=== PATIENT | female | born 1995 | race Caucasian/White ===

== ENCOUNTER 2024-08-25 07:23 | Outpatient (REF) | payer OTHER, BC, SELFPAY ==
--- NOTE | ~2024-08-25 | MR_ITS ---
EXAMINATION: MR BRAIN WITHOUT CONTRAST CLINICAL INFORMATION: Post concussion syndrome headache. COMPARISON: None available. TECHNIQUE: MRI of the brain was obtained using routine sequences without contrast. FINDINGS: No acute or old intracranial hemorrhage. No restricted diffusion. No mass effect midline shift, hydrocephalus or herniation. Ocampo-white matter differentiation is normal. Posterior cranial fossa contents demonstrated no signal abnormality or mass effect. No cerebral volume loss. Flow-void signal within the main cerebral vessels is normal. There is slightly increased T2 signal within the left internal jugular bulb suggesting slow flow. Sellar/suprasellar region demonstrated no signal abnormality or masses. Craniocervical and demonstrates normal position of the cerebellar tonsils. Midline structures are normal. Small retention cyst, right maxillary sinus. MR/MR head/brain wo con IMPRESSION: No acute or structural brain abnormality. No old blood products. Electronically signed by: Reddy Buckley MD 08/25/2024 08:18 AM EDT
--- OUTSIDE RECORDS SUMMARY | 2024-08-25 07:26 | XMS_ITS | Clinical Summary ---
Author Organization [facility] Address [address] [place] [phone] Phone Care Team Providers Care Dope Pourer Name Role Phone Unavailable Primary Care Provider Unavailabl e Allergies Active Allergy Reactions Criticality Noted Date Comments Morphine Shortness of breath High 09/10/2016 Occurred sometime ~ surgery 01/2016 Medications cloNIDine 0.1 MG tablet Take 0.2 mg by mouth nightly. 3 8 Active sertraline 50 MG tablet Take 50 mg by mouth once daily. 4 8 Active ibuprofen 200 MG tablet Take 1 tablet by mouth every 6 hours. Active SUMAtriptan 25 MG tablet 1 tablet as needed one time Orally as needed Active FLUZONE QUADRIVALENT 0.5 ML suspension prefilled syringe TO BE ADMINISTERED BY PHARMACIST FOR IMMUNIZATION 0 8 Active albuterol HFA 108 (90 Base) MCG/ACT inhalerIndicatio ns:Mild persistent asthma without complication Inhale 2 puffs every 4 (four) hours as needed for wheezing. 1 Units 3 9 Active QVAR REDIHALER 80 MCG/ACT aerosolIndicatio ns:Mild persistent asthma without complication INHALE 2 PUFFS 2 (TWO) TIMES A DAY. RINSE MOUTH WITH WATER AFTER USE. DO NOT SWALLOW. 10.6 g 9 Active Active Problems Problem Noted Date Diagnosed Date Right medial knee pain 08/18/2018 Overview (08/18/2018): Seen at [facility] Xray showed narrowing of the medial joint space Mild persistent asthma without complication 03/09 Overview (10/12/2017): History of mild persistent asthma. Now notes exacerbations rarely, although may need Albuterol several times a week due to exercise ( despite use of QVAR daily). Usually associated with exercise. Treated successfully with Albuterol prn. Discussed use of alternate medications if frequency or severity of episodes change ( Symbicort?). ls also concerned about allergic reaction to vodka with shortness of breath and GI distress. Not with other kinds of alcohol. Will refer to allergy to address these questions. Assessment & Plan (10/12/2017 2:35 PM EDT): History of mild persistent asthma. Now notes exacerbations rarely, although may need Albuterol several times a week due to exercise ( despite use of QVAR daily). Usually associated with exercise. Treated successfully with Albuterol prn. Discussed use of alternate medications if frequency or severity of episodes change ( Symbicort?). ls also concerned about allergic reaction to vodka with shortness of breath and GI distress. Not with other kinds of alcohol. Will refer to allergy to address these questions. Delayed sleep phase syndrome 09/25/2015 Overview (10/12/2017): Long history of sleep difficulties. Seen by Dr Christianson ( 09/21) with discussion of sleep issues and recommendations. Assessment & Plan (10/12/2017 3:04 PM EDT): Long history of sleep difficulties. Seen by Dr Christianson ( 09/21) with discussion of sleep issues and recommendations. Follow clinically. Continue present management. Dysthymic disorder 09/29/2014 Assessment & Plan (10/12/2017 2:29 PM EDT): The current medical regimen is effective; continue present plan and medications. Seeing a therapist and psychiatrist through [facility]. Assessment & Plan (10/11/2016 8:12 AM EDT): Continue present management-- seeing therapist and psychiatrist at [facility]. Doing well by report. Hearing loss 07/13/2013 Overview (06/23/2018): Initially diagnosed with unspecified hearing loss in 2014; referred to audiology. No specific treatment needed. Recently seen by ENT for abnormal auditory perceptions Assessment & Plan (01/07/2018 5:19 PM EDT): Initially diagnosed with unspecified hearing loss in 2014; referred to audiology. No specific treatment recommended Returns with subjective worsening in hearing loss ( confirmed by audiogram). Will refer to Patrol Officer ( Dr Hankins) Assessment & Plan (10/12/2017 3:56 PM EDT): nitially diagnosed with unspecified hearing loss in 2014; referred to audiology. No specific treatment needed. Repeat testing today continues to show bilateral low frequency hearing loss. Migraine with aura 10/22/2009 Assessment & Plan (10/12/2017 2:31 PM EDT): Migraine headaches are now relatively rare; one episode this summer, none for the previous 6 months. Discussed triggers and potential for avoidance. Maintain adequate sleep hygiene. Abortive treatment recommended; may use Imitrex preferentially. Discussed sleeping/ resting in a dark room at the time of headache. Anticipate improvement in 12-24 h. If headaches are becoming more frequent or disruptive or awakening patient from sleep, may need to consider daily preventive medications or referral to Neurology. If headache is intolerable, or steadily worsening, then ED referral may be needed. Assessment & Plan (10/11/2016 8:14 AM EDT): Migraine headaches are now rare-- one in the last year, although the most recent episode lasted overnight. Usually responds to Imitrex. ( Recent ROJAS started at work; unable to treat at onset) Resolved Problems Problem Noted Date Diagnosed Date Resolved Date Chest pain 09/25/2015 10/12/2017 Assessment & Plan (10/11/2016 8:11 AM EDT): History of chest wall pain associated with exercise-- referred to cardiology last year. Seems to respond to Albuterol HFA. Discussed treatment prn or prior to exertion. Pain in soft tissues of limb 09/25/2015 10/12/2017 Other malaise and fatigue 09/25/2015 Screening for lipoid disorders 09/29/2014 10/10/2016 Immunizations Immunization Administration Dates Next Due DTP 01/17/1999, 9,04/03/1997,10/24,1996 DTaP 5 08/05/2001 Hep B, ped/adol 04/03/1997,1996,1996 Hib (HbOC) 01/17/1999, 9,04/03/1997,10/24,1996 IPV 08/05/2001 Influenza 12/04/2011,11/25/2009 Influenza Split 12/18/2008,12/29/2007 Influenza, injectable, triva lent, preservative free 12/02/2013,11/14/2012,01/02/2011 MMR 08/05/2001,07/25/1997 Meningococcal Conj (Menactra) MCV4P 10/31/2013,0 08/30/2008 OPV 01/17/1999, 8,1996,08/10 Td (adult) (MBL), 2 Lf tetan us toxoid, PF, adsorbed 12/02/2004 Tdap 08/30/2008 Varicella 11/24/2007,01/17/1999 Social History Tobacco Use Types Packs/Day Years Used Date Smoking Tobacco: Never Smokeless Tobacco: Never Comments:Never Smoker Comments No Sex and Gender Information Value Date Recorded Sex Assigned at Not on file Legal Sex Female 4:26 PM EST Gender Identity Not on file Sexual Orientation Not on file Last Filed Vital Signs Vital Sign Reading Time Taken Comments Blood Pressure 100/63 01/07/2018 3:32 PM EDT Pulse 65 01/07/2018 3:32 PM EDT Temperature 36.7 C (98.1 F) 01/07/2018 3:32 PM EDT Respiratory Rate 20 03/13/2017 1:16 PM EST Oxygen Saturation 99% 01/07/2018 3:32 PM EDT Inhaled Oxygen Concentration - - Weight 58.7 kg (129 lb 4.8 oz) 01/07/2018 3:32 P M EDT Height 157.5 cm (5' 2 ) 10/12/2017 1:35 PM EDT Body Mass Index 23.65 10/12/2017 1:35 PM EDT Plan of Treatment Health Maintenance Due Date Last Done Comments DTaP,Tdap,and Td Vaccines (7 - Td or Tdap) 08/30/2018 08/30/2008, 12/02/2004, 08/05/2001, Additional history exists Influenza Vaccines (#1) 2023 12/03/19 14, 11/14/2012, 12/04/2011, Additional history exists COVID-19 Vaccine ( season) 2023 Hepatitis B Vaccines Completed 04/03/1997, 1996, 1996 HIB Vaccines Completed 01/17/1999, 03/09, 04/03/1997, Additional history exists IPV Vaccines Completed 08/05/2001, 01/07, 07/25/1997, Additional history exists MMR Vaccines Completed 08/05/2001, 07/25/1997 Varicella Vaccines Completed 11/24/2007, 01/17/1999 Meningococcal Vaccine Completed 10/31/2013, 009 HPV Vaccines Aged Out No longer eligi ble based on patient's age to complete this topic Hepatitis A Vaccines Aged Out No long er eligible based on patient's age to complete this topic Men B Vaccine Aged Out No longer elig ible based on patient's age to complete this topic Pneumococcal Vaccine Aged Out No long er eligible based on patient's age to complete this topic Procedures * Due to [place] Ell[place] law, this organization might not be sharing sensitive test results. Procedure Name Priority Date/Time Associated Diagnosis Comments CHLAMYDIA TRACHOMATIS, AMPLIFIED Routine 10/10/2016 3:08 PM EDT Well adult exam from Last 3 Months or Most Recently Relevant to Health Maintenance Results * Due to [place] Ell[place] law, this organization might not be sharing sensitive test results. * Chlamydia trachomatis, Amplified (10/10/2016 3:08 PM EDT) Chlamydia Trachomatis, DNA Probe NEGATIVE No Chlamydia Trachomatis RNA detected in this patient's sample (REFERENCE RANGE/NORMAL VALUE: NOT DETECTED) [facility] URINE GC AMP PROBE NEGATIVE No Neisseria Gonorrhoeae RNA detected in this patient's sample (REFERENCE RANGE/NORMAL VALUE: NOT DETECTED) NOTE: This test uses cardiovascular physician assistant-medi ated amplification method to detect rRNA from C.Trachomatis and N.Gonorrhoeae. A negative result does not preclude infection. In the case of a negative urine result, testing of an endocervical(femal e) or urethral(male) specimen is recommended if there is high clinical suspicion of infection. Due to very high sensitivity of Nucleic Acid Amplification Test, false positive results may occur. Therefore, specimen handling is extremely important. In patients in whom the disease is unlikely, additional sample for testing should be considered after an initial positive result. The performance characteristics of this test have not been evaluated in children. The Aptima Combo2 assay is not intended for the evaluation of suspected sexual abuse or for other medico-legal indications. The ordering provider should assess if the patient had consensual sex without risk of sexual abuse. Consult the [facility] if needed. Contact phone number . Therapeutic failure or success cannot be determined with the Aptima Combo2 assay since nucleic acid may persist following appropriate antimicrobial therapy. The Centers for Disease Control and Prevention (CDC) recommends confirmatory retesting using culture or a different nucleic acid amplification test when positive results occur, if indicated. [facility] Comment: Testing performed or reported by [facility], a Service of [facility], [facility] [place] [address] [facility] [id number] Jcarlos Mora MD, PhD, Driver Manager 10/10/2016 3:08 PM EDT 10/10/2016 11:27 PM EDT Tre Gtz MD LAB MICROBIOLOGY - GENERAL ZITA ALCANTAR Final Result [facility] from Last 3 Months or Most Recently Relevant to Health [place] [id number] [facility] HMO
== END 2024-08-25 07:24 | disposition home or self-care (01) ==
LOC: HO.MRI 07:23
DX: G44.309 Post-traumatic headache, unspecified, not intractable (principal)
CPT/HCPCS: 70551

== ENCOUNTER → 2024-08-25 07:25 | Outpatient (BNV) | payer OTHER, SELFPAY | PROVIDERS: Visit Provider Radiology Diagnostic Radiology | DX: R51.9 Headache, unspecified (principal); F07.81 Postconcussional syndrome | CPT/HCPCS: 70551 ==